=== PATIENT | male | born 1940 | race Caucasian/White ===

== ENCOUNTER 2017-01-12 11:38 | Inpatient (IN) | payer MEDICARE ==
[2017-01-12] MEDS ORDERED: RX INFO: IV CONTRAST WAS GIVEN 1 EACH MISC MISCELLANE PRN (12:43)
--- NOTE | 2017-01-12 12:47 | ED ---
General Adult HPI - General Chief complaint: Weakness Stated complaint: ankles swelling Time Seen by Provider: 01/12/17 12:33 Source: patient, family, RN notes reviewed Mode of arrival: wheelchair Limitations: no limitations - History of Present Illness Initial comments: Patient is a pleasant 76-year-old male presenting to the emergency department several complaints. Patient was started on antibiotics a couple of weeks ago for sinus infection. Patient still has mild drainage and cough. Patient has leg swelling. Patient does have a history of some mild leg swelling however not only as severe as this. Patient has had some intermittent yellow discoloration of the skin. Patient did go to the clinic today and was advised to come to the emergency Department. No history of liver disease. No history of significant alcohol use. No history of frequent Tylenol use. - Related Data Home Medications Medication Instructions Recorded Confirmed Aspirin EC [Ecotrin Low Dose] 81 mg PO DAILY 01/12/17 01/12/17 Calcium Carbonate [Calcium] 600 mg PO DAILY 01/12/17 01/12/17 Cetirizine HCl [Zyrtec] 10 mg PO DAILY 01/12/17 01/12/17 Cholecalciferol [Vitamin D3] 1,000 unit PO DAILY 01/12/17 01/12/17 Metoprolol Tartrate [Lopressor] 25 mg PO BID 01/12/17 01/12/17 Multivitamins, Thera [Multivitamin 1 tab PO DAILY 01/12/17 01/12/17 (formulary)] Rosuvastatin Calcium [Crestor] 5 mg PO Q48H 01/12/17 01/12/17 Saw [place] 500 mg PO DAILY 01/12/17 01/12/17 Turmeric Root Extract [Turmeric] 500 mg PO DAILY 01/12/17 01/12/17 Ubidecarenone [Co Q-10] 100 mg PO DAILY 01/12/17 01/12/17 amLODIPine BESYLATE/BENAZEPRIL 1 cap PO DAILY 01/12/17 01/12/17 [Lotrel 5-20 mg Capsule] Allergies Allergy/AdvReac Type Severity Reaction Status Date / Time Penicillins AdvReac Unknown Verified 01/12/17 13:32 Review of Systems ROS Statement: Those systems with pertinent positive or pertinent negative responses have been documented in the HPI. ROS Other: All systems not noted in ROS Statement are negative. Constitutional: Denies: fever Eyes: Denies: eye pain ENT: Denies: ear pain Respiratory: Reports: cough. Denies: dyspnea Cardiovascular: Denies: chest pain Endocrine: Reports: fatigue Gastrointestinal: Reports: other (Anorexia). Denies: abdominal pain, nausea, vomiting Genitourinary: Denies: dysuria Musculoskeletal: Denies: back pain Skin: Denies: rash Neurological: Denies: headache Past Medical History Past Medical History: Myocardial Infarction ([place]) Additional Past Medical History / Comment(s): 2010 History of Any Multi-Drug Resistant Organisms: None Reported Additional Past Surgical History / Comment(s): cardiac stent Past Psychological History: No Psychological Hx Reported Smoking Status: Never smoker Past Alcohol Use History: None Reported Past Drug Use History: None Reported General Exam Limitations: no limitations General appearance: alert, in no apparent distress Head exam: Present: atraumatic Eye exam: Present: normal appearance, PERRL ENT exam: Present: normal oropharynx Neck exam: Present: normal inspection Respiratory exam: Present: normal lung sounds bilaterally Cardiovascular Exam: Present: regular rate, normal rhythm GI/Abdominal exam: Present: soft, distended, tenderness (Mild epigastric tenderness with questionable palpable mass. Nonpulsatile), normal bowel sounds , organomegaly (Hepatomegaly). Absent: guarding, rebound, rigid, pulsatile mass Extremities exam: Present: pedal edema (+ 3 bilateral). Absent: calf tenderness Back exam: Present: normal inspection Neurological exam: Present: alert. Absent: motor sensory deficit Psychiatric exam: Present: normal affect, normal mood Skin exam: Present: other (Mild jaundice appearance) Course Vital Signs 01/12/17 01/12/17 11:45 14:00 Temperature 97.0 F L Pulse Rate 70 84 Respiratory 18 18 Rate Blood Pressure 113/65 96/56 O2 Sat by Pulse 98 97 Oximetry EKG Findings - EKG Comments: EKG Findings:: Normal sinus rhythm at 70. [place] 136. QRS 104. QT 414. QTC 447. Left axis. Normal QRS. Normal ST-T. Medical Decision Making - Medical Decision Making Patient reevaluated in updated. Computed tomography scan has been ordered for questionable mass in to evaluate liver further. Case was discussed in detail with Dr. aguilar, who will admit for Dr. Patterson. - Lab Data Result diagrams: 01/12/17 12:31 01/12/17 12:31 Lab Results 01/12/17 01/12/17 Range/Units 12:31 12:31 WBC 13.6 H (3.8-10.6) k/uL RBC 4.01 L (4.30-5.90) m/uL Hgb 12.9 L (13.0-17.5) gm/dL Hct 40.1 (39.0-53.0) % MCV 100.1 H (80.0-100.0) fL MCH 32.1 (25.0-35.0) pg MCHC 32.1 (31.0-37.0) g/dL RDW 15.9 H (11.5-15.5) % Plt Count 310 (150-450) k/uL Neutrophils % 78 % Lymphocytes % 13 % Monocytes % 7 % Eosinophils % 1 % Basophils % 0 % Neutrophils # 10.6 H (1.3-7.7) k/uL Lymphocytes # 1.7 (1.0-4.8) k/uL Monocytes # 1.0 (0-1.0) k/uL Eosinophils # 0.1 (0-0.7) k/uL Basophils # 0.1 (0-0.2) k/uL Macrocytosis Slight Sodium 133 L (137-145) mmol/L Potassium 5.2 H (3.5-5.1) mmol/L Chloride 97 L (98-107) mmol/L Carbon Dioxide 27 (22-30) mmol/L Anion Gap 9 mmol/L BUN 21 H (9-20) mg/dL Creatinine 0.85 (0.66-1.25) mg/dL Est GFR (MDRD) Af Amer >60 (>60 ml/min/1.73 sqM) Est GFR (MDRD) Non-Af >60 (>60 ml/min/1.73 sqM) Glucose 92 (74-99) mg/dL Calcium 11.6 H (8.4-10.2) mg/dL Magnesium 1.9 (1.6-2.3) mg/dL Total Bilirubin 7.5 H (0.2-1.3) mg/dL AST 261 H (17-59) U/L ALT 159 H (21-72) U/L Alkaline Phosphatase 799 H (38-126) U/L Total Protein 6.0 L (6.3-8.2) g/dL Albumin 2.7 L (3.5-5.0) g/dL Amylase 45 (30-110) U/L Lipase 47 (23-300) U/L - Radiology Data Radiology results: image reviewed (Chest x-ray shows small left effusion.) Disposition Clinical Impression: Acute hepatitis Disposition: ADMITTED IP TO THIS [facility] Time of Disposition: 14:21
--- NOTE | 2017-01-12 13:33 | XR ---
EXAMINATION TYPE: XR chest 2V DATE OF EXAM: 01/12/2017 1:24 PM COMPARISON: None HISTORY: 76-year-old male with weakness, shortness of breath, swollen feet TECHNIQUE: AP and lateral views FINDINGS: Heart is normal size. Aorta and pulmonary vasculature within normal limits. There is a small left ple ural effusion with adjacent opacity. Degenerative changes of the left shoulder. IMPRESSION: Small left pleural effusion with adjacent atelectasis and/or infiltrate. Clinically correlate.
[2017-01-12 14:03] LABS: Basophils # (A) 0.1 k/uL (0-0.2); Basophils % (A) 0 %; CH 31.3; CHCM 31.5; Eosinophils # (A) 0.1 k/uL (0-0.7); Eosinophils % (A) 1 %; HCT 40.1 % (39.0-53.0); HDW 2.33; HGB 12.9 gm/dL (13.0-17.5); Luc % (Auto) 2; Lymphocytes # (A) 1.7 k/uL (1.0-4.8); Lymphocytes % (A) 13 %; MCH 32.1 pg (25.0-35.0); MCHC 32.1 g/dL (31.0-37.0); MCV 100.1 fL (80.0-100.0); Macrocytosis Slight; Mean Platelet Volume 8.5; Monocytes % (A) 7 %; Neutrophils # (A) 10.6 k/uL (1.3-7.7); Neutrophils % (A) 78 %; RBC 4.01 m/uL (4.30-5.90); RDW 15.9 % (11.5-15.5); WBC 13.6 k/uL (3.8-10.6); WBC (Perox) 13.98
[2017-01-12 14:13] LABS: ALT 159 U/L (21-72); AST 261 U/L (17-59); Alkaline Phosphatase 799 U/L (38-126); Amylase 45 U/L (30-110); Anion Gap 9 mmol/L; Blood Urea Nitrogen 21 mg/dL (9-20); Calcium 11.6 mg/dL (8.4-10.2); Carbon Dioxide 27 mmol/L (22-30); Chloride 97 mmol/L (98-107); Glucose 92 mg/dL (74-99); Magnesium 1.9 mg/dL (1.6-2.3); Non-African American GFR(MDRD) >60 (>60 ml/min/1.73 sqM); Potassium 5.2 mmol/L (3.5-5.1); Sodium 133 mmol/L (137-145); Total Bilirubin 7.5 mg/dL (0.2-1.3)
[2017-01-12] MEDS ORDERED: NALOXONE 0.4 MG/ML 1 ML VIAL IV PRN (14:21)
[2017-01-12] MEDS ORDERED: ONDANSETRON 4 MG/2 ML VIAL IVP PRN (14:21)
[2017-01-12 14:24] LABS: Creatine Kinase 152 U/L (55-170)
[2017-01-12 14:37] LABS: Creatine Kinase MB 1.1 ng/mL (0.0-2.4); Troponin I <0.012 ng/mL (0.000-0.034)
[2017-01-12 14:43] LABS: INR 1.5 (<1.1); Prothrombin Time 14.6 sec (9.0-12.0)
[2017-01-12 14:44] LABS: Hepatitis B Surface Ag Index 0.05
[2017-01-12 14:50] LABS: Hepatitis B Core IgM Index 0.03
[2017-01-12 14:58] LABS: Partial Thromboplastin Time 19.8 sec (22.0-30.0)
[2017-01-12 15:01] LABS: Hepatitis C Virus IgG Index 0.02
[2017-01-12 15:04] LABS: Hepatitis C Virus IgG Ab Negative (Negative)
--- NOTE | 2017-01-12 15:06 | CT ---
EXAMINATION TYPE: CT abdomen pelvis w con DATE OF EXAM: 01/12/2017 2:55 PM COMPARISON: NONE INDICATION: jaundice, bilateral lower leg swelling DLP: 1639 mGycm, Automated exposure control for dose reduction was used. CONTRAST: 100 mL of Omnipaque 300. Study performed without Oral Contrast TECHNIQUE: Axial images were obtained from above the diaphragm to the pubic rami in the axial plane a t 5 mm thick sections. Reconstructed images are reviewed on the computer in the coronal plane. FINDINGS: Limited CT sections are obtained the lung bases. There is a 0.7 cm peripheral right lower lobe nodul e. Series 4 image 1 a posterior medial 0.5 cm nodule is present same level. A 0.3 cm nodules within t he anterior lingula series 4 image 2 there is a 0.5 cm nodule right lower lobe. Series 4 image 4. 0.3 cm nodules within the anterior right middle lobe at same level. There is an area of pneumonitis with in the anterior right middle lobe. 0.4 cm nodules in the superior segment right lower lobe. Series 4 image 5. 0.4 similar nodules within the mid lingula. Some atelectasis is likely within the dependent portions of the lung bases bilaterally. Coronary artery calcification is present. No pericardial effusion is evident. CT ABDOMEN: Liver: There are extensive hypodense areas with slightly irregular margins scattered throughout the l iver compatible with metastatic lesions. Small amount of ascites is adjacent to the liver. Small amou nt of ascites adjacent to the spleen. No intrahepatic biliary dilatation is identified. Spleen: Spleen is normal density without discrete masses or cysts. Pancreas: Atrophic Adrenal glands: The adrenal glands are normal. Gallbladder: Normal Kidneys: No masses are evident. No hydronephrosis is present. There is a 2.4 cm cyst at the inferio r pole right kidney. A 0.3 cm calcification may be at the inferior pole without obstruction. A 0.9 cm hypodensities in the posterior inferior right kidney may be a small cortical renal cyst. There is a 1.9 cm cyst measuring 12 Hounsfield units in the mid right kidney. A nonobstructing 0.4 cm upper late ral renal stone is present. A nonobstructing 0.3 cm calcification is at the inferior pole left kidney . Delayed images were obtained through the kidneys, which remain unremarkable. Aorta: Vascular calcification is within the aorta. Inferior vena cava: Normal. CT PELVIS: Loops of bowel within the abdomen and pelvis are normal. Study is performed without oral contrast limiting bowel evaluation. Appendix: Not identified Urinary bladder: Normal. Genitourinary structures: Prostate appears normal Osseous structures: No suspicious lytic or sclerotic lesions. Degenerative disc changes are present L 5-S1. Additional degenerative disc changes are within the lumbar spine. IMPRESSIONS: 1. Extensive metastatic disease throughout the liver. 2. Multiple bilateral inferior lung field punctate nodules suspicious for metastatic disease. 3. Nonobstructing punctate renal stones. Left renal cysts are also present. 4. Ascites to mild degree
[2017-01-12] MEDS: SODIUM CHLORIDE 0.9% 1,000 ML IV SCH (15:09)
[2017-01-12] MEDS: PANTOPRAZOLE 40 MG/10 ML VIAL IV SCH (15:09)
[2017-01-12 16:24] VITALS: BMI 31.5
--- NOTE | 2017-01-12 20:28 | CONS ---
DATE OF CONSULTATION: 01/12/2017 REASON FOR CONSULTATION: Elevated LFTs and jaundice. HISTORY OF PRESENT ILLNESS: The patient is a 76-year-old pleasant white male who came into the emergency room not feeling well for the last 4 weeks' duration. He just returned from [place] a couple of days ago. While he was there he started having some upper respiratory infection that productive cough, sputum production. He was treated with antibiotics for 2 weeks' duration. His symptoms continued to progressively get worse. After he returned to [place] he went to see Dr. Powell today, who advised him to go to the emergency room. In the ER he was noted to have jaundice with elevated serum transaminases and hence we are consulted in regards to this issue. The patient denies any abdominal pain. He reports no fever, chills, night sweats. He lost about 10 pounds in the last one month and has been complaining of poor appetite. In the ER he did have a CT of the abdomen and pelvis done that showed multiple lesions in the liver suspicious for metastasis. His past medical history is significant for: 1. Hypertension. 2. Hyperlipidemia. 3. Coronary artery disease, status post stent in 2009. 4. Morbid obesity. MEDICATIONS AT HOME: 1. Aspirin. 2. Calcium. 3. Zyrtec. 4. Vitamin D3. 5. Lopressor. 6. Multivitamin. 7. Crestor. 8. Lotrel. 9. Coenzyme Q-10. 10. Tumeric. ALLERGIES: PENICILLIN. PAST SURGICAL HISTORY: Cardiac stent in 2009. SOCIAL HISTORY: No smoking. No alcohol use. FAMILY HISTORY: Unremarkable. REVIEW OF SYSTEMS: CARDIOPULMONARY: No chest pain, shortness of breath. GENITOURINARY: No dysuria or hematuria. MUSCULOSKELETAL: Unremarkable. SKIN: Unremarkable other than yellowish discoloration. NEUROLOGY: Unremarkable. PSYCHIATRIC: Unremarkable. ENT/VISION: Unremarkable. CONSTITUTIONAL: Ten pounds of weight loss. No fevers, chills, night sweats. On physical examination, he appears comfortable, in no apparent distress. Vital signs are stable. Blood pressure 113/65, pulse 70, temperature 97. HEENT EXAMINATION: Unremarkable. Conjunctivae pink. Sclerae deeply icteric. Oral cavity with no lesions. NECK: No JVD or lymph node enlargement. Chest was clear to auscultation. HEART: Regular rate and rhythm. ABDOMEN: Soft. Bowel sounds are positive. Liver was significantly enlarged. It was very firm to hard in consistency. It measured about 6 cm below the right costal margin. No free fluid noted. EXTREMITIES: No pedal edema. SKIN: No rashes. NEURO: Alert and oriented x3. No focal deficits. LABS FROM TODAY: WBC 13.6, hemoglobin 12.9, platelets 310. PT was 114.6. INR 1.5. Total bilirubin 7.5. AST 261, ALT 159, alkaline phosphatase 799. Hepatitis serologies for A, B and C were negative. Amylase and lipase are normal. CT of the abdomen showed extensive metastatic disease throughout the liver. No evidence of biliary ductal dilation. Also multiple bilateral inferior lung field punctate nodules suspicious for metastatic disease. Mild ascites. IMPRESSION: This is a patient who presents with painless jaundice, decreased appetite, weight loss of 10 pounds for the last 2 weeks' duration and yellowish discoloration of skin. LFTs are significantly elevated. CT of the abdomen showed multiple lesions in the liver suspicious for metastatic disease. No evidence of biliary ductal dilation. Multiple lesions noted in the lung, also, suspicious for metastasis. RECOMMENDATIONS: 1. Oncology consultation. 2. Will schedule him for ultrasound-guided liver biopsy tomorrow. 3. Will follow him closely during his hospital stay. Thank you for this consultation.
[2017-01-12 21:56] VITALS: RESP 16
[2017-01-13] MEDS: SODIUM CHLORIDE 0.9% 1,000 ML IV SCH (08:52)
[2017-01-13] MEDS: PANTOPRAZOLE 40 MG/10 ML VIAL IV SCH (10:52)
--- NOTE | 2017-01-13 14:18 | HP ---
DATE OF ADMISSION: 01/12/2017 PRESENTING COMPLAINT: Weak, tired, yellow. HISTORY OF PRESENTING COMPLAINT: This is a very pleasant 76-year-old patient of Dr. Williams Powell whose chronic stable medical condition of hyperlipidemia, hypertension, coronary artery with stent 10 years ago, skin cancer. Patient and live down in [place] during the watts. Patient for about 4 weeks noted his appetite started going down, started losing weight, urine started becoming dark in the last 2 weeks, stool becoming more pasty, finally decided to come in. CT scan of the abdomen and pelvis was carried out, showed multiple shadows in the liver and multiple bilateral inferior lung field punctate nodules suspicious again for metastatic disease, some renal stones were also noted. Mild to moderate ascites. Patient's is at the bedside. REVIEW OF SYSTEMS: CONSTITUTIONAL: Weak, tired, loss of appetite. HEENT: Yellow eyes. RESPIRATORY: None. CARDIOVASCULAR: None. GASTROINTESTINAL: Some abdominal distention. GENITOURINARY: None. MUSCULOSKELETAL: None. DERMATOLOGICAL: None. HEMATOLOGICAL: None. LYMPHATICS: None. PSYCHIATRY: None. NEUROLOGICAL: None. GENERALIZED: Also patient has got lower extremity edema. Past medical history of hyperlipidemia, hypertension, coronary artery with stent, skin cancer. PAST SURGICAL HISTORY: Cardiac cath with stent, skin cancer removed, breast cyst removed in 1979, noncancerous. SOCIAL HISTORY: Patient did smoke in the past. Retired from education, alcohol rarely. Family history of cancer and hypertension. HOME MEDICATIONS: 1. Lotrel 5/20 one capsule a day. 2. Co Q-10 one hundred mg p.o. daily. 3. Turmeric 500 mg p.o. daily. 4. Saw palmetto 500 mg p.o. daily. 5. Crestor 5 mg q.48 hours. 6. Multivitamin 1 tablet p.o. daily. 7. Lopressor 25 mg p.o. b.i.d. 8. Vitamin D3 one thousand units p.o. daily. 9. Zyrtec 10 mg p.o. daily. 10. Calcium 600 mg p.o. daily. 11. Aspirin 81 mg p.o. daily. Allergies to PENICILLIN. On examination, temperature 97, pulse 90, respirations 18, blood pressure 113/55, pulse ox 98% on room air. GENERAL APPEARANCE: Well-built, BMI of 31.6, lying in bed, tired-appearing. EYES: Pupils equal. Conjunctivae have icterus present. HEENT: External appearance of nose and oral cavity normal. NECK: JVD not raised. Mass not palpable. Respiratory effort normal. LUNGS: Slightly decreased breath sounds. CARDIOVASCULAR: First and second sounds normal. Edema present. ABDOMEN: Distended, multiple masses in the liver area can be felt. No guarding or rigidity. LYMPHATIC: No lymph nodes palpable in neck or axillae. PSYCHIATRY: Alert and oriented x3. Mood and affect slightly low. NEUROLOGICAL: Pupils equal. Cranial nerves grossly intact. Power and sensation grossly intact. INVESTIGATIONS: White count 13.6, hemoglobin 12.9, pro time 14.6, sodium 133, BUN 21, creatinine 0.85, AST 261, ALT 159, alk phos 799, bilirubin 7.5, albumin 2.7. CT scan of the chest and abdomen as above. ASSESSMENT: 1. This is a patient who presents with painless jaundice and now on the CT scan found what appears to be severe metastatic disease both in the liver and in the lung field, also causing an obstructive jaundice pattern. 2. Hypercalcemia probably from free-water deficit. 3. Mild hyperkalemia. 4. Hyponatremia probably hyperosmolar. 5. Hyperlipidemia. 6. Essential hypertension. 7. Coronary artery with prior history of stent. 8. Hypoalbuminemia, both from liver disease and probably from moderate protein calorie malnutrition, decreased oral intake. PLAN: Consultation was done with GI to Dr. Joshua Cho and ultrasound-guided liver biopsy has been ordered. Will put the patient on vitamin K if it helps to a small degree. Patient's antihypertensives will be held off and so will be Crestor. Also hold off patient's calcium supplementation. Patient is being gently hydrated. Care was discussed in detail with the patient and . Will also consult Oncology.
[2017-01-13 14:53] VITALS: BP 130/70; PULSE 94; TEMP 97.4
--- NOTE | 2017-01-13 17:12 | P.CONS ---
History of Present Illness - Reason for Consult Consult date: 01/13/17 liver lesions Requesting physician: Lakeisha Cho - Chief Complaint jaundice - History of Present Illness Mr. Fernandez is a very pleasant male who just recently returned from [facility]. He began not feeling well about 3 weeks ago. He c/o of malaise, cough, congestion, dark urine and phelgm production. He was treated with abx and drank lots of fluids, he did feel better for a few days but then symptoms returned with additional symptoms of vomiting and constipation, he only vomited 1 once but his appetite has poor ever since, he thinks he is down about 12 lbs in a few weeks, he denied bloody, black, pale or mucoid stool, his noticed jaundice on and off for the last 2-3 weeks. Pt denies any other symptoms on a 10 point ROS, he was in his usual state of health until just a few weeks ago, he is typically very active, he swims and rides a bike nearly every day of the week. He is feeling pretty weak at this time, the swelling in his legs started within the last week. Review of Systems All systems: negative Constitutional: Reports as per HPI Past Medical History Past Medical History: Cancer, Hyperlipidemia, Hypertension, Myocardial Infarction ([place]) Additional Past Medical History / Comment(s): 2009. Skin Cancer in 2017 / Surgical intervention Last Myocardial Infarction Date:: 2009 History of Any Multi-Drug Resistant Organisms: None Reported Past Surgical History: Heart Catheterization Additional Past Surgical History / Comment(s): cardiac stent. Skin Cancer surgery 2011. Breast lumps removed 1979 - non-cancerous Past Anesthesia/Blood Transfusion Reactions: No Reported Reaction Additional Past Anesthesia/Blood Transfusion Reaction / Comm: No history of blood transfusions Past Psychological History: No Psychological Hx Reported Smoking Status: Former smoker Past Alcohol Use History: None Reported Past Drug Use History: None Reported - Past Family History Mother Family Medical History: Cancer, Hypertension Medications and Allergies Home Medications Medication Instructions Recorded Confirmed Type Metoprolol Tartrate [Lopressor] 25 mg PO BID 01/12/17 01/12/17 History Allergies Allergy/AdvReac Type Severity Reaction Status Date / Time Penicillins AdvReac Unknown Verified 01/12/17 13:32 Physical Exam Vitals: Vital Signs Temp Pulse Resp BP Pulse Ox 01/13/17 14:53 97.4 F L 94 16 130/70 96 04/18/17 08:00 96 16 01/13/17 07:00 97.7 F 96 16 133/78 95 01/12/17 20:50 97.7 F 86 16 115/70 95 01/12/17 17:06 98 20 Intake and Output 01/13/17 01/13/17 01/13/17 06:59 14:59 22:59 Intake Total 600 600 Balance 600 600 Intake: IV 600 600 Sodium Chloride 0.9% 1, 600 600 000 ml @ 75 mls/hr IV . [id number] [facility] Rx#:[id number] Oral 0 Other: Voiding Method Toilet # Voids 3 1 # Bowel Movements 2 Weight 99.79 kg Patient Weight 01/14/17 06:59 Weight 99.79 kg - Constitutional General appearance: cooperative, no acute distress, obese - EENT Eyes: scleral icterus ENT: normal oropharynx - Neck Neck: no lymphadenopathy - Respiratory Respiratory: bilateral: CTA - Cardiovascular Rhythm: regular Heart sounds: normal: S1, S2 leg Peripheral Edema: bilateral: 2+, Pitting - Gastrointestinal General gastrointestinal: no absent bowel sounds, no decreased bowel sounds, no distended, hepatomegaly, no hyperactive bowel sounds, normal bowel sounds, no organomegaly, no rigid, no scaphoid, soft, no splenomegaly, no tenderness, no umbilical hernia, ventral hernia Localized gastrointestinal: mass: epigastric periumbilical - Integumentary Integumentary: jaundiced - Neurologic Neurologic: CNII-XII intact - Musculoskeletal Musculoskeletal: strength equal bilaterally - Psychiatric Psychiatric: A&O x's 3, appropriate affect, intact judgment & insight Results CBC & Chem 7: 01/12/17 12:31 01/12/17 12:31 Chest x-ray: report reviewed CT scan - abdomen: report reviewed CT scan - pelvis: report reviewed Assessment and Plan (1) Liver lesion Status: Acute (2) Acute hepatitis Status: Acute Plan: Imaging suggestive of a malignant process, pt is sched for biopsy soon. Await path. Labs reviewed, no evidence of acute hepatitis, pt was slightly hypercalcemic, he is being hydrated. Will request chest CT Follow up when path available
[2017-01-13] MEDS ORDERED: RX INFO: IV CONTRAST WAS GIVEN 1 EACH MISC MISCELLANE PRN (17:13)
--- NOTE | 2017-01-14 23:01 | DS ---
DATE OF ADMISSION: 01/12/2017 DATE OF DISCHARGE: 01/13/2017 FINAL DIAGNOSES: 1. Metastatic disease in the liver and lungs causing obstructive jaundice. 2. Hypercalcemia from free water deficit and decreased oral intake. 3. Hyperkalemia. 4. Hypernatremia, probably hypo-osmolar. 5. Hyperlipidemia. 6. Essential hypertension. 7. Coronary artery disease with prior history of stent. 8. Hypoalbuminemia, both from liver disease and probably from moderate protein-calorie malnutrition from decreased oral intake. CONSULTATIONS: 1. Dr. Howie Varghese from Oncology. 2. Dr. Joshua Cho from GI. HOSPITAL COURSE: This patient presented ( ) weight loss, loss of appetite, found to have what appears to be metastatic disease both in the liver and the lungs. Liver biopsy was supposed to be done, but because of patient's aspirin, Radiology postponed the same; hence patient decided to go home and come back as an outpatient. Patient's blood pressure was running low; hence some of the antihypertensive, calcium supplements were all discontinued. On examination, liver masses were present ( ) DISCHARGE MEDICATION: Lopressor 25 p.o. b.i.d. Follow up with Dr. Varghese in one week. Follow up with Dr. Joshua Cho in one week. Follow up with Dr. Powell in 3 days. Liver biopsy as an outpatient is being arranged. Prognosis guarded.
== END 2017-01-13 18:25 | disposition home health service (06) | DRG 435 ==
LOC: EC 11:38 → 5MS5E 14:23
PROVIDERS: ADMIT Hospitalist; ATTEND Hospitalist
DX: C78.7 Secondary malignant neoplasm of liver and intrahepatic bile duct (principal); K83.1 Obstruction of bile duct; E44.0 Moderate protein-calorie malnutrition; C78.00 Secondary malignant neoplasm of unspecified lung; R18.8 Other ascites; E87.1 Hypo-osmolality and hyponatremia; E83.52 Hypercalcemia; E87.5 Hyperkalemia; E66.01 Morbid (severe) obesity due to excess calories; E78.5 Hyperlipidemia, unspecified; I10 Essential (primary) hypertension; I25.10 Atherosclerotic heart disease of native coronary artery without angina pectoris; I25.2 Old myocardial infarction; N20.0 Calculus of kidney; Z79.82 Long term (current) use of aspirin; Z79.899 Other long term (current) drug therapy; Z88.0 Allergy status to penicillin; Z95.5 Presence of coronary angioplasty implant and graft; Z85.828 Personal history of other malignant neoplasm of skin; Z87.891 Personal history of nicotine dependence; Z68.31 Body mass index [BMI] 31.0-31.9, adult; Z80.9 Family history of malignant neoplasm, unspecified; Z82.49 Family history of ischemic heart disease and other diseases of the circulatory system
CPT/HCPCS: 36415; 71020; 74177; 80053; 80074; 82150; 82550; 82553; 83690; 83735; 83880; 84484; 85025; 85610; 85730; 93005; 96374; 99285

== ENCOUNTER → 2017-01-14 | Outpatient (CLI) | payer MEDICARE ==
--- NOTE | 2017-01-14 19:26 | CT ---
EXAMINATION TYPE: CT chest w con DATE OF EXAM: 01/14/2017 6:47 PM COMPARISON: NONE HISTORY: No complaints at time of service possible metastatic disease. CT DLP: 546.9 mGycm Automated exposure control for dose reduction was used. CONTRAST: CT scan of the chest is performed with IV Contrast, patient injected with 100 mL of Omnipaque 300. FINDINGS: There is a 1 cm nodule in the apex of the superior segment of left lower lobe. There is an 8 mm nodul e in the anterior left upper lobe. There is a 5 mm nodule in the anterior right upper lobe. There is a 5 mm faint low-density nodule in the paraspinal superior segment right lower lobe. There is a 1 cm low-density nodule in the lateral aspect of the right middle lobe. There is mild bilateral pleural ef fusion. There is patchy atelectasis at the lung bases. There is a 1 cm low-density nodule in the ante rior right middle lobe. There are no hilar masses. Thoracic aorta is atheromatous. I see no mediastinal adenopathy. There are spondylotic changes in the thoracic spine. I see no focal bone destruction. There are multiple low-density areas throughout the visualized liver. IMPRESSION: Pleural reaction and atelectasis at the lung bases. Multiple bilateral low-density pulmonary nodules. These are nonspecific and could relate to metastati c disease. Multiple liver lesions consistent with malignancy.
== END | disposition home or self-care (01) ==
LOC: RADCTMAIN 18:16
PROVIDERS: ATTEND Internal Medicine
DX: R91.8 Other nonspecific abnormal finding of lung field (principal); K76.9 Liver disease, unspecified; J98.11 Atelectasis; J90 Pleural effusion, not elsewhere classified
CPT/HCPCS: 71260; Q9967

== ENCOUNTER 2017-01-19 07:45 | Day surgery (SDC) | payer MEDICARE ==
[2017-01-19] MEDS ORDERED: ALPRAZolam 0.25 MG TAB PO ONE (08:23)
[2017-01-19] MEDS ORDERED: HYDROmorphone 1 MG/ML 1 ML SYRINGE IVP PRN (08:23)
[2017-01-19 08:32] LABS: Mean Platelet Volume 8.4
[2017-01-19 08:33] VITALS: BP 121/78; PULSE 70; RESP 16; TEMP 97.7
[2017-01-19 08:36] LABS: INR 1.8 (<1.1); Prothrombin Time 17.5 sec (9.0-12.0)
== END 2017-01-19 09:55 | disposition home or self-care (01) ==
LOC: RADPROMAIN 07:45
PROVIDERS: ATTEND Internal Medicine Gastroenterology
DX: K76.9 Liver disease, unspecified (principal)
CPT/HCPCS: 85049; 85610; 86850; 86870; 86880; 86900; 86901